=== PATIENT | female | born 1980 | race American Indian/Alaskan Native ===

== ENCOUNTER 2021-01-05 05:47 | Day surgery (SDC) | payer OTHER ==
--- NOTE | 2021-01-04 17:14 | Short Stay Summary ---
Short Stay Documentation Date of service: 01/05/21 Narrative H&P: 40y/o with dysfunctional uterine bleeding. Pelvic ultrasound demonstrates a 3.2cm leiomyoma. The patient has failed medical management. Overall size of the uterus is 9.5cm. She elects for surgical management. Patient has been reassessed/reevaluated/re-examined. H&P has been reviewed. No interval changes. - History Principal diagnosis: Dysfunctional uterine bleeding Past Medical History: other (thyroid disorder) Past Surgical History: No surgical history Social history: single, smoking - Allergies and Medications Current Medications: Allergies No Known Allergies Allergy (Unverified 01/03/21 16:01) Home Medications Medication Instructions Recorded Confirmed Last Taken Type No Known Home Medications [No 01/03/21 01/03/21 Unknown History Reported Home Medications] - Physical exam General appearance: no acute distress Integumentary: no rash HEENT: Atraumatic Lungs: Clear to auscultation Breasts: deferred Heart: Regular rate Gastrointestinal: normal Female Genitourinary: deferred Rectal Exam: deferred - Brief post op/procedure progress note Date of procedure: 01/05/21 Pre-op diagnosis: Dysfunctional uterine bleeding Post-op diagnosis: same Procedure: Hysteroscopy Endometrial ablation via NovaSure Anesthesia: GETA Surgeon: JOSE JIMÉNEZ Estimated blood loss: minimal Pathology: none Condition: stable - Hospital course Hospital course: The patient was admitted the day of surgery and underwent an endometrial ablation. Please see operative note for details of surgery. Her postoperative course was uneventful. - Disposition Condition at discharge: Good Disposition: 01 HOME / SELF CARE / HOMELESS Short Stay Discharge Plan Activity: other (Pelvic rest for 1 week) Diet: regular Additional Instructions: Schedule follow-up with Dr. Jiménez in 2 to 4 weeks Pelvic rest for 1 week Prescriptions: Ibuprofen [Motrin] 800 mg PO Q8HR PRN #30 tablet PRN Reason: Pain , Severe (7-10) HYDROcodone/APAP 5-325 [[place] 5/325] 1 each PO Q6HR PRN #15 tablet PRN Reason: Pain
[2021-01-05] MEDS ORDERED: MIDAZOLAM 2 MG/2 ML INJ IV NR (06:00)
[2021-01-05] MEDS ORDERED: LACTATED RINGERS 1,000 ML IV SCH (06:00)
[2021-01-05] MEDS ORDERED: propofoL 200 MG/20 ML VIAL IV ONE (07:11)
[2021-01-05] MEDS ORDERED: HYDROmorphone 1 MG/1 ML INJ ONE (07:11)
[2021-01-05] MEDS ORDERED: LIDOCAINE MPF (2%) 20 MG/1 ML VIAL 5 ML ONE (07:12)
[2021-01-05 07:16] LABS: Mean Corpuscular HGB Conc 29 % (30-34); Platelet Count 369 K/mm3 (140-440); Red Blood Count 4.51 M/mm3 (3.65-5.03); Red Cell Distribution Width 19.7 % (13.2-15.2)
[2021-01-05] MEDS ORDERED: SCOPOLAMINE TRANSDERMAL PATCH 72 HR TD ONE (07:33)
--- NOTE | 2021-01-05 07:39 | Anesthesia Day of Surgery ---
Anesthesia Day of Surgery - Day of Surgery Patient Examined: Yes Patient H&P Reviewed: Yes Patient is NPO: Yes
--- NOTE | 2021-01-05 07:39 | Anesthesia Consultation ---
Anesthesia Consult and Med Hx Date of service: 01/05/21 - Airway Anesthetic Teeth Evaluation: Good ROM Head & Neck: Adequate Mental/Hyoid Distance: Adequate Mallampati Class: Class III Intubation Access Assessment: Possibly Difficult - Pre-Operative Health Status ASA Pre-Surgery Classification: ASA2 Proposed Anesthetic Plan: General - Pulmonary Hx Smoking: Yes (1 black and mild per day) Hx Respiratory Symptoms: No - Cardiovascular System Hx Hypertension: No - Central Nervous System CVA: No - Endocrine Hx Renal Disease: No Hx Liver Disease: No Hx Insulin Dependent Diabetes: No Hx Non-Insulin Dependent Diabetes: No Hx Thyroid Disease: Yes (resolved) - Hematic Hx Anemia: Yes - Additional Comments Anesthesia Medical History Comments: Hx PONV
[2021-01-05] MEDS ORDERED: dexAMETHasone 20 MG/5 ML VIAL ONE (07:44)
[2021-01-05] MEDS ORDERED: HYDROcodone/ACETAMINOPHEN 5-325 MG TAB PO PRN (08:00)
[2021-01-05] MEDS ORDERED: ONDANSETRON 4 MG/2 ML INJ IV PRN (08:00)
[2021-01-05] MEDS ORDERED: HYDROmorphone 1 MG/1 ML INJ IV PRN (08:00)
[2021-01-05] MEDS ORDERED: KETOROLAC 30 MG/1 ML INJ ONE (08:02)
--- NOTE | 2021-01-05 08:07 | Operative Report ---
Operative Report Operative Report: Date of procedure: January 05, 2021 Pre-operative diagnosis: Dysfunctional uterine bleeding Post-operative diagnosis: Same as above Procedure name(s): Hysteroscopy; endometrial ablation via NovaSure Surgeon: Kylee Hunter M.D. Senior Windows Administrator: None Anesthesia: General endotracheal anesthesia Findings normal endometrial cavity Indication: 40-year-old -0-0-2 with a history of dysfunctional uterine bleeding with failed medical management. Procedure The patient was taken to the operating room and given general tracheal anesthesia without complication. The patient was prepped and draped in a normal sterile fashion. A bivalve speculum was placed in the patient's vagina single- tooth tenaculums placed on the anterior lip of the cervix. The cervical os was dilated with graduated dilators. A uterine sound was inserted. The hysteroscope was then placed. Insufflation of the uterine cavity was performed with normal saline. Gen. survey of the uterine cavity revealed normal uterine cavity. The hysteroscope was then removed. The NovaSure device was then inserted. The endometrial length was 5.5 cm and the uterine width was 4.3 cm. The device was engaged and it passed the surveillance of the uterine cavity. The NovaSure device was then deployed with a energy of 130 W that lasted for 1 minute 29 seconds. The NovaSure device was then removed. The hysteroscope was again reinserted. There was evidence of charring of the endometrial surface. The remainder of the vaginal instruments were then removed atraumatically. The patient was then successfully extubated taken to the recovery room. All sponge laps and needle counts were correct 2.
[2021-01-05] MEDS ORDERED: SODIUM CHLORIDE 0.9% IRRIG SOLN 2000 ML IR ONE (08:15)
[2021-01-05 08:19] LABS: Hematocrit 27.2 % (30.3-42.9); Hemoglobin 7.8 gm/dl (10.1-14.3); Mean Corpuscular Volume 60 fl (79-97)
[2021-01-05 09:08] VITALS: BP 114/68
--- NOTE | 2021-01-05 10:59 | Post Anesthesia Evaluation ---
- Post Anesthesia Evaluation Patient Participated: Yes Airway Patent: Yes Stable Respiratory Function: Yes Nausea/Vomiting: No Temp > 96.8F: Yes Pain Manageable: Yes Adequeate Hydration: Yes Anesthesia Complications: No
== END 2021-01-05 09:30 | disposition home or self-care (01) ==
LOC: OR 05:47
PROVIDERS: ATTEND Obstetrics & Gynecology
DX: N93.8 Other specified abnormal uterine and vaginal bleeding (principal); F17.210 Nicotine dependence, cigarettes, uncomplicated; Z79.899 Other long term (current) drug therapy; Z98.890 Other specified postprocedural states
CPT/HCPCS: 36415; 58563; 81025; 85027; 86850; 86900; 86901; A4217; J1100; J1170; J1885; J2250; J2405; J2704; J7120